=== PATIENT | female | born 1955 ===

== ENCOUNTER 2021-10-01 11:15 | Inpatient (IN) | payer OTHER ==
[~2021-10-01] VITALS: Ht 142.2 cm; Wt 61.7 kg
[2021-10-01] MEDS ORDERED: LEVOXYL50 MCG PO (13:22)
[2021-10-01] MEDS ORDERED: ACCUPRIL10 MG PO (13:22)
[2021-10-01] MEDS ORDERED: PROVASTATIN PO (13:23)
[2021-10-04] MEDS ORDERED: ROSUVASTATIN CA10 MG (08:29)
[2021-10-04] MEDS ORDERED: ALENDRONATE SOD70 MG (08:29)
[2021-10-04] MEDS ORDERED: PRAVASTATIN SOD10 MG PO (08:30)
[2021-10-05] MEDS ORDERED: PERCOCET 5-3251 EACH PO (16:17)
== END 2021-10-05 19:00 | disposition home or self-care (01) | DRG 331 ==
LOC: O/R 10-03 10:12 → SURH 10-03 10:12 → SURG 10-03 19:32 → O/R 10-03 19:37 → SURH 10-03 19:39
PROVIDERS: ADMIT Surgery; ATTEND Surgery
PROC: 0DJD8ZZ Inspection of Lower Intestinal Tract, Via Natural or Artificial Opening Endoscopic (ICD-10-PCS; 2021-10-03)
PROC: 0DTN4ZZ Resection of Sigmoid Colon, Percutaneous Endoscopic Approach (ICD-10-PCS; principal; 2021-10-03 11:00)
DX: K63.4 Enteroptosis (principal); Z20.822 Contact with and (suspected) exposure to COVID-19